=== PATIENT | male | born 1965 | race Caucasian/White ===

== ENCOUNTER 2016-07-18 11:57 | Emergency (ER) | payer OTHER ==
--- NOTE | 2016-07-18 13:12 | DIAGNOSTIC IMAGING REPORT ---
PROCEDURE: XR CHEST 1 VIEW INDICATION: SHORTNESS OF BREATH TECHNIQUE: Portable AP view 12:47 p.m. COMPARISON: None. FINDINGS: Lungs are clear. Pacemaker and mitral valve replacement. Mild cardiomegaly. IMPRESSION: 1. Mild cardiomegaly. Lungs clear.
--- NOTE | 2016-07-18 15:40 | ED CLINICAL REPORT ---
Clinical Report - Physicians/Mid Levels [facility] [address] [place] [address] 07/18/2016 11:59 Patient: MATTHEW AKBAR Time Seen: 12:21. Arrived- By private vehicle. Historian- patient. HISTORY OF PRESENT ILLNESS Chief Complaint: SHORTNESS OF BREATH. This started several months ago and is now gone. It has been intermittent and waxing/waning. It is described as pressure. The patient has had mild difficulty breathing (chronically). (the patient is concerned as he has had redness and skin breakdown over his legs for the past couple of weeks.). REVIEW OF SYSTEMS The patient has had mild calf pain involving the right leg and left leg (chronically). It has been similar to previous episodes. He has had chest pain. He has had difficulty breathing (chronically). It has been similar to previous symptoms. He has had pedal edema involving the right and left leg (chronically - recently worsening). He has had palpitations (chronically). No abdominal pain, constipation, diarrhea, nausea or vomiting. He has had skin rash consisting of "redness" located on the right leg and left leg. All systems otherwise negative, except as recorded above. SOCIAL HISTORY Current every day smoker (cigarette). Alcohol use; consumes beer occasionally. History of occasional drug use: marijuana. FAMILY HISTORY Denies family medical history. ADDITIONAL NOTES The nursing notes have been reviewed. PHYSICAL EXAM Vital Signs: 07/18/2016 12:15 BP: 133/83. HR: 80. RR: 18. O2 saturation: 96%. Temp: 98.2 F. Pain level now: 8/10. Have been reviewed. Appearance: Alert. Eyes: Pupils equal, round and reactive to light. ENT: Pharynx normal. Neck: Normal inspection. Neck supple. No JVD. CVS: Abnormal rhythm, which is irregularly irregular. Respiratory: No respiratory distress. Decreased air movement. No rales, rhonchi or wheezes. Abdomen: Soft and nontender. Bowel sounds normal. No organomegaly. No mass. Back: Normal external inspection. Skin: Medium area of cellulitis with tenderness, erythema and warmth to right leg and left leg. Extremities: Bilateral mild pitting edema of the lower extremities involving both feet, both ankles and both lower legs. Extremities exhibit normal ROM. No calf tenderness. LABS, X-RAYS, AND EKG EKG: Atrial fibrillation. Left posterior fascicular block. Our EKG machine reports suspect unspecified pacemaker failure. Prior EKG unavailable. The study has been independently viewed by me. Chest X-ray: (IMPRESSION: 1. Mild cardiomegaly. Lungs clear.). The X-rays were interpreted by the radiologist and contemporaneously by me. Laboratory Tests: UA-Culture if indicated: (MICHELLE: 07/18/2016 14:50) ( [facility] Final results Test Result Flag Units (Reference) URINE COLOR YELLOW URINE APPEARANCE CLEAR URINE GLUCOSE NEGATIVE (NEGATIVE) URINE BILIRUBIN NEGATIVE (NEGATIVE) URINE KETONE NEGATIVE (NEGATIVE) URINE SPECIFIC GRAVITY 1.010 (1.010-1.030) URINE PH 5.5 (5.0-8.0) URINE PROTEIN NEGATIVE (NEGATIVE) URINE UROBILINOGEN 0.2 EU/dL (0.2-1.0) URINE NITRITE NEGATIVE (NEGATIVE) URINE BLOOD NEGATIVE (NEGATIVE) URINE LEUK ESTERASE NEGATIVE (NEGATIVE) URINE RBC NONE SEEN rbc/hpf (0-1) URINE WBC NONE SEEN wbc/hpf (0-1) URINE EPITHELIAL CELLS 0-1 EPI/hpf (0-5) URINE BACTERIA NONE SEEN (NONE SEEN) URINE COMMENT CULT NOT INDICATED URINE CULTURES ARE SET-UP BASED ON THE FOLLOWING CRITERIA:POSITIVE NITRITEPOSITIVE LEUKOCYTE ESTERASEGREATER THAN 10 WHITE BLOOD CELLSMODERATE (2+) OR GREATER BACTERIA CBC w Diff: (MICHELLE: 07/18/2016 12:50) ( [facility] 07/18/2016 13:04) Final results Test Result Flag Units (Reference) WHITE BLOOD COUNT 10.2 K/uL (4.5-11.5) RED BLOOD COUNT 4.94 M/uL (4.50-5.90) HEMOGLOBIN 15.4 gm/dL (13.5-17.5) HEMATOCRIT 45.8 % (41.0-53.0) MEAN CELL VOLUME 93 fL (80-100) MEAN CORPUSCULAR HGB 31 pg (26-34) MEAN CORPUSCULAR HGB CONC 34 g/dL (31-37) RED CELL DISTRIBUTION WIDTH 13.0 % (11.6-14.8) PLATELET COUNT 213 K/uL (150-400) NEUTROPHIL % 68.9 % (50-75) LYMPH % 20.3 L % (25-40) MONO % 6.4 % (3-14) EOSINOPHIL % 3.9 % (0-4) BASOPHIL % 0.5 % (0-2) PT with INR: (MICHELLE: 07/18/2016 12:50) ( [facility] 07/18/2016 13:12) Final results Test Result Flag Units (Reference) INR 0.9 (0.8-1.2) Low Intensity Therapy: INR 1.5-2.0 PT range 18.5-23.1Mod.Intensity Therapy: INR 2.0-3.0 PT range 23.1-31.5High Intensity Therapy: INR 2.5-3.5 PT range 27.4-35.5High Intensity Therapy 2: INR 3.0-4.0 PT range 31.5-39.3 APTT 33 SECONDS (24-34) D-DIMER QUANTITATIVE 0.49 ug/mLFEU (0.27-0.52) The primary value of this quantitative assay relates toits negative predictive value (i.e. exclusion) of pulmonaryembolism/deep vein thrombosis/DIC.Elevated levels of d-dimer may also occur with:, age, cancer, inflammation, liver disease,post-op, infection, hematoma, coronary disease, peripheralarteriopathy, bleeding disorders and thrombolytic treatment.Results should be correlated with other clinical andradiological data.Testing Methodology: Latex Immunoassay Urine Drug Screen: (MICHELLE: 07/18/2016 14:50) ( [facility] 07/18/2016 15:19) Final results Test Result Flag Units (Reference) AMPHETAMINE/METHAMPHETAMINE NEGATIVE (NEGATIVE) BARBITURATE NEGATIVE (NEGATIVE) BENZODIAZEPINE NEGATIVE (NEGATIVE) CANNABINOID NEGATIVE (NEGATIVE) COCAINE NEGATIVE (NEGATIVE) ECSTASY NEGATIVE (NEGATIVE) METHADONE NEGATIVE (NEGATIVE) OPIATE NEGATIVE (NEGATIVE) The urine drug screen is a qualitative screening test fordrug overdose and abuse. All screen results should beconsidered as presumptive.Drugs screened for are as follows:BenzodiazepinesCocaineAmphetamines/MetamphetaminesTHC (Tetrahydrocannabinol)OpiatesBarbituratesEcstasyMethadonePositive results are unconfirmed. For confirmation, notifythe lab for the specimen to be sent to the reference lab.All confirmations must be performed by a differentmethodology.The ingestion of natural herbal and plant productscontaining Ephedra/Ephedra metabolites can produce in urineone or more substances capable of cross reacting withamphetamine/methamphetamine immunoassays. These testsprovide a preliminary result only. A more specificalternative chemical method must be used to obtain aconfirmed analytical result. BNP: (MICHELLE: 07/18/2016 12:50) ( [facility] 07/18/2016 13:22) Final results Test Result Flag Units (Reference) B-TYPE NATRIURETIC PEPTIDE 261 H pg/ml (5-100) CMP: (MICHELLE: 07/18/2016 12:50) ( [facility] Final results Test Result Flag Units (Reference) GLUCOSE 126 H mg/dL (70-110) BUN 12 mg/dL (7-18) CREATININE 1.2 mg/dL (0.6-1.3) Estimated GFR >60 mL/min Estimated GFR- >60 mL/min Note: Persistent reduction over 3 months in eGFR<60 mL/min/1.73 m2 defines CKD. Patients with eGFR values>=60 mL/min/1.73 m2 may also have CKD if evidence ofpersistent proteinuria. Additional information may be foundat www.kidney.org. SODIUM 139 mmol/L (136-145) POTASSIUM 4.3 mmol/L (3.5-5.1) CHLORIDE 102 mmol/L (98-107) CARBON DIOXIDE 29 mmol/L (21-32) CALCIUM 9.0 mg/dL (8.5-10.1) TOTAL PROTEIN 6.8 g/dL (6.4-8.2) ALBUMIN 3.4 g/dL (3.3-5.0) BILIRUBIN, TOTAL 0.3 mg/dL (0.0-1.0) ALKALINE PHOSPHATASE 51 U/L (46-116) AST (SGOT) 26 U/L (15-37) ALT (SGPT) 34 U/L (12-78) LIPASE 93 U/L (73-393) AMYLASE 32 U/L (25-115) CPK 162 U/L (24-260) TROPONIN I <0.05 ng/mL (0.00-1.5) TROPONIN REFERENCE RANGE:<0.1 NEGATIVE0.1-1.5 INDETERMINANT>1.5 POSITIVE THYROID STIMULATING HORMONE 1.974 uIU/mL (0.34-3.74) . PROGRESS AND PROCEDURES Course of Care: Patient is stable. Consult obtained from cardiology. Dr. Rico for Dr. Coley. Case discussed. Phone consult only. Will see patient in the office. Patient/family counseled. Old medical records reviewed. Disposition: Discharged. Condition: stable. CLINICAL IMPRESSION Chronic mild congestive heart failure Bilateral pedal edema. Cellulitis of the right lower leg and left lower leg. INSTRUCTIONS Warnings: Further evaluation is necessary. GENERAL WARNINGS: Return or contact your physician immediately if your condition worsens or changes unexpectedly, if not improving as expected, or if other problems arise. Your Current Medications: CONTINUE TAKING THE FOLLOWING MEDICATIONS: Flonase Nasal. Gabapentin Oral. Loratadine Oral. Metoprolol Tartrate Oral : 150 mg two times. Omeprazole Oral. ProAir HFA Inhalation. Zofran Oral. Prescription Medications: Keflex 500 mg: take 1 capsule orally every 6 hours for 10 days. No refill. Substitution is permissible. Lasix 20 mg: take 1 orally every 24 hours. Dispense five (5). No refills. Substitution is permissible. Follow-up: Follow up with your doctor Friday in three days. Call for an appointment. Follow up with a novelty twister operator- as recommended by your primary care physician. Understanding of the discharge instructions verbalized by patient and family. (Electronically signed by Tomas Meeks MD 07/22/2016 9:08)
--- NOTE | 2016-07-18 15:40 | ED ORDER SUMMARY ---
..... Patient: MATTHEW AKBAR OrderSheet [facility] VisitID: [id number] [address] [place] [address] 50y, M Registration Date/Time: 07/18/2016 ORDER SHEET Weight: 113.3 kg (stated) Allergies: No Known Drug Allergy, Penicillins, Sulfa Antibiotics, morphine GENERAL ORDERS: Chest 1V Urgent (12:39 07/18/2016 Maria Esther ENGEL) (Ack 12:42 Jessika) (12:57 EHassan R.N.) Business Unit Director (Continuous) (12:39 07/18/2016 Maria Esther ENGEL) (12:56 EHsuly R.N.) CBC w Diff Urgent (12:39 07/18/2016 Maria Esther ENGEL) (Ack 12:42 Jessika) (12:56 EHassan R.N.) CMP Urgent (12:39 07/18/2016 Maria Esther ENGEL) (Ack 12:42 Jessika) (12:56 EHassan R.N.) PT with INR Urgent (12:39 07/18/2016 Maria Esther ENGEL) (Ack 12:42 Jessika) (12:56 EHassan R.N.) UA-Culture if indicated Urgent (12:39 07/18/2016 Maria Esther ENGEL) (Ack 12:42 Jessika) (15:57 EHassan R.N.) PTT Urgent (12:39 07/18/2016 Maria Esther ENGEL) (Ack 12:42 Jessika) (12:56 EHassan R.N.) CPK Urgent (12:39 07/18/2016 Maria Esther ENGEL) (Ack 12:42 Jessika) (12:56 EHassarosalie R.N.) Troponin-I Urgent (12:39 07/18/2016 Maria Esther ENGEL) (Ack 12:42 Jessika) (12:56 Carlos R.N.) D-Dimer Urgent (12:39 07/18/2016 Maria Esther ENGEL) (Ack 12:42 Jessika) (12:56 EHsuly R.N.) BNP Urgent (12:39 07/18/2016 Maria Esther ENGEL) (Ack 12:42 Jessika) (12:56 EHsuly R.N.) TSH Urgent (12:39 07/18/2016 Maria Esther ENGEL) (Ack 12:42 Jessika) (12:57 EHsuly R.N.) Oxygen (2 L/min) (NC) (12:39 07/18/2016 Maria Esther ENGEL) (12:56 Carlos R.N.) Pulse oximeter (12:39 07/18/2016 Maria Esther ENGEL) (12:56 Carlos R.N.) EKG - ER Stat (12:39 07/18/2016 Maria Esther ENGEL) (13:01 Jessika) Amylase Urgent (12:40 07/18/2016 Maria Esther ENGEL) (Ack 12:42 Jessika) (12:57 Carlos R.N.) Lipase Urgent (12:40 07/18/2016 Maria Esther ENGEL) (Ack 12:42 Jessika) (12:57 EHsuly R.N.) Urine Drug Screen Urgent (14:08 07/18/2016 Maria Esther ENGEL) (Ack 14:14 Jessika) (15:57 Carlos R.N.) MEDICATION ORDERS: Tylenol PO 1,000 mg (NOW) (14:48 07/18/2016 Carlos R.N. verbal order read back to Maria Esther ENGEL) (14:49 EHassan R.N.) IV FLUIDS: IV Saline Lock (12:39 07/18/2016 Maria Esther ENGEL) (12:57 BRENDONassan R.N.) Dilaudid IV 0.5 mg (NOW) (13:02 07/18/2016 Carlos R.N. verbal order read back to Maria Esther ENGEL) (13:16 EHassan R.N.) ORDER SHEET NOTES: [Electronically signed by Elva Gregory R.N. (15:57 07/18/2016)] [Electronically signed by Tomas Meeks MD (09:08 07/22/2016)] [Electronically locked/signed by Elva Gregory R.N. (15:57 07/18/2016)]
--- NOTE | 2016-07-18 15:40 | ED CLINICAL REPORT ---
Clinical Report - Physicians/Mid Levels [facility] [address] [place] [address] 07/18/2016 11:59 Patient: MATTHEW AKBAR Time Seen: 12:21. Arrived- By private vehicle. Historian- patient. HISTORY OF PRESENT ILLNESS Chief Complaint: SHORTNESS OF BREATH. This started several months ago and is now gone. It has been intermittent and waxing/waning. It is described as pressure. The patient has had mild difficulty breathing (chronically). (the patient is concerned as he has had redness and skin breakdown over his legs for the past couple of weeks.). REVIEW OF SYSTEMS The patient has had mild calf pain involving the right leg and left leg (chronically). It has been similar to previous episodes. He has had chest pain. He has had difficulty breathing (chronically). It has been similar to previous symptoms. He has had pedal edema involving the right and left leg (chronically - recently worsening). He has had palpitations (chronically). No abdominal pain, constipation, diarrhea, nausea or vomiting. He has had skin rash consisting of "redness" located on the right leg and left leg. All systems otherwise negative, except as recorded above. SOCIAL HISTORY Current every day smoker (cigarette). Alcohol use; consumes beer occasionally. History of occasional drug use: marijuana. FAMILY HISTORY Denies family medical history. ADDITIONAL NOTES The nursing notes have been reviewed. PHYSICAL EXAM Vital Signs: 07/18/2016 12:15 BP: 133/83. HR: 80. RR: 18. O2 saturation: 96%. Temp: 98.2 F. Pain level now: 8/10. Have been reviewed. Appearance: Alert. Eyes: Pupils equal, round and reactive to light. ENT: Pharynx normal. Neck: Normal inspection. Neck supple. No JVD. CVS: Abnormal rhythm, which is irregularly irregular. Respiratory: No respiratory distress. Decreased air movement. No rales, rhonchi or wheezes. Abdomen: Soft and nontender. Bowel sounds normal. No organomegaly. No mass. Back: Normal external inspection. Skin: Medium area of cellulitis with tenderness, erythema and warmth to right leg and left leg. Extremities: Bilateral mild pitting edema of the lower extremities involving both feet, both ankles and both lower legs. Extremities exhibit normal ROM. No calf tenderness. LABS, X-RAYS, AND EKG EKG: Atrial fibrillation. Left posterior fascicular block. Our EKG machine reports suspect unspecified pacemaker failure. Prior EKG unavailable. The study has been independently viewed by me. Chest X-ray: (IMPRESSION: 1. Mild cardiomegaly. Lungs clear.). The X-rays were interpreted by the radiologist and contemporaneously by me. Laboratory Tests: UA-Culture if indicated: (MICHELLE: 07/18/2016 14:50) ( [facility] Final results Test Result Flag Units (Reference) URINE COLOR YELLOW URINE APPEARANCE CLEAR URINE GLUCOSE NEGATIVE (NEGATIVE) URINE BILIRUBIN NEGATIVE (NEGATIVE) URINE KETONE NEGATIVE (NEGATIVE) URINE SPECIFIC GRAVITY 1.010 (1.010-1.030) URINE PH 5.5 (5.0-8.0) URINE PROTEIN NEGATIVE (NEGATIVE) URINE UROBILINOGEN 0.2 EU/dL (0.2-1.0) URINE NITRITE NEGATIVE (NEGATIVE) URINE BLOOD NEGATIVE (NEGATIVE) URINE LEUK ESTERASE NEGATIVE (NEGATIVE) URINE RBC NONE SEEN rbc/hpf (0-1) URINE WBC NONE SEEN wbc/hpf (0-1) URINE EPITHELIAL CELLS 0-1 EPI/hpf (0-5) URINE BACTERIA NONE SEEN (NONE SEEN) URINE COMMENT CULT NOT INDICATED URINE CULTURES ARE SET-UP BASED ON THE FOLLOWING CRITERIA:POSITIVE NITRITEPOSITIVE LEUKOCYTE ESTERASEGREATER THAN 10 WHITE BLOOD CELLSMODERATE (2+) OR GREATER BACTERIA CBC w Diff: (MICHELLE: 07/18/2016 12:50) ( [facility] 07/18/2016 13:04) Final results Test Result Flag Units (Reference) WHITE BLOOD COUNT 10.2 K/uL (4.5-11.5) RED BLOOD COUNT 4.94 M/uL (4.50-5.90) HEMOGLOBIN 15.4 gm/dL (13.5-17.5) HEMATOCRIT 45.8 % (41.0-53.0) MEAN CELL VOLUME 93 fL (80-100) MEAN CORPUSCULAR HGB 31 pg (26-34) MEAN CORPUSCULAR HGB CONC 34 g/dL (31-37) RED CELL DISTRIBUTION WIDTH 13.0 % (11.6-14.8) PLATELET COUNT 213 K/uL (150-400) NEUTROPHIL % 68.9 % (50-75) LYMPH % 20.3 L % (25-40) MONO % 6.4 % (3-14) EOSINOPHIL % 3.9 % (0-4) BASOPHIL % 0.5 % (0-2) PT with INR: (MICHELLE: 07/18/2016 12:50) ( [facility] 07/18/2016 13:12) Final results Test Result Flag Units (Reference) INR 0.9 (0.8-1.2) Low Intensity Therapy: INR 1.5-2.0 PT range 18.5-23.1Mod.Intensity Therapy: INR 2.0-3.0 PT range 23.1-31.5High Intensity Therapy: INR 2.5-3.5 PT range 27.4-35.5High Intensity Therapy 2: INR 3.0-4.0 PT range 31.5-39.3 APTT 33 SECONDS (24-34) D-DIMER QUANTITATIVE 0.49 ug/mLFEU (0.27-0.52) The primary value of this quantitative assay relates toits negative predictive value (i.e. exclusion) of pulmonaryembolism/deep vein thrombosis/DIC.Elevated levels of d-dimer may also occur with:, age, cancer, inflammation, liver disease,post-op, infection, hematoma, coronary disease, peripheralarteriopathy, bleeding disorders and thrombolytic treatment.Results should be correlated with other clinical andradiological data.Testing Methodology: Latex Immunoassay Urine Drug Screen: (MICHELLE: 07/18/2016 14:50) ( [facility] 07/18/2016 15:19) Final results Test Result Flag Units (Reference) AMPHETAMINE/METHAMPHETAMINE NEGATIVE (NEGATIVE) BARBITURATE NEGATIVE (NEGATIVE) BENZODIAZEPINE NEGATIVE (NEGATIVE) CANNABINOID NEGATIVE (NEGATIVE) COCAINE NEGATIVE (NEGATIVE) ECSTASY NEGATIVE (NEGATIVE) METHADONE NEGATIVE (NEGATIVE) OPIATE NEGATIVE (NEGATIVE) The urine drug screen is a qualitative screening test fordrug overdose and abuse. All screen results should beconsidered as presumptive.Drugs screened for are as follows:BenzodiazepinesCocaineAmphetamines/MetamphetaminesTHC (Tetrahydrocannabinol)OpiatesBarbituratesEcstasyMethadonePositive results are unconfirmed. For confirmation, notifythe lab for the specimen to be sent to the reference lab.All confirmations must be performed by a differentmethodology.The ingestion of natural herbal and plant productscontaining Ephedra/Ephedra metabolites can produce in urineone or more substances capable of cross reacting withamphetamine/methamphetamine immunoassays. These testsprovide a preliminary result only. A more specificalternative chemical method must be used to obtain aconfirmed analytical result. BNP: (MICHELLE: 07/18/2016 12:50) ( [facility] 13:22) Final results Test Result Flag Units (Reference) B-TYPE NATRIURETIC PEPTIDE 261 H pg/ml (5-100) CMP: (MICHELLE: 07/18/2016 12:50) ( [facility] 07/18/2016 14:02) Final results Test Result Flag Units (Reference) GLUCOSE 126 H mg/dL (70-110) BUN 12 mg/dL (7-18) CREATININE 1.2 mg/dL (0.6-1.3) Estimated GFR >60 mL/min Estimated GFR- >60 mL/min Note: Persistent reduction over 3 months in eGFR<60 mL/min/1.73 m2 defines CKD. Patients with eGFR values>=60 mL/min/1.73 m2 may also have CKD if evidence ofpersistent proteinuria. Additional information may be foundat www.kidney.org. SODIUM 139 mmol/L (136-145) POTASSIUM 4.3 mmol/L (3.5-5.1) CHLORIDE 102 mmol/L (98-107) CARBON DIOXIDE 29 mmol/L (21-32) CALCIUM 9.0 mg/dL (8.5-10.1) TOTAL PROTEIN 6.8 g/dL (6.4-8.2) ALBUMIN 3.4 g/dL (3.3-5.0) BILIRUBIN, TOTAL 0.3 mg/dL (0.0-1.0) ALKALINE PHOSPHATASE 51 U/L (46-116) AST (SGOT) 26 U/L (15-37) ALT (SGPT) 34 U/L (12-78) LIPASE 93 U/L (73-393) AMYLASE 32 U/L (25-115) CPK 162 U/L (24-260) TROPONIN I <0.05 ng/mL (0.00-1.5) TROPONIN REFERENCE RANGE:<0.1 NEGATIVE0.1-1.5 INDETERMINANT>1.5 POSITIVE THYROID STIMULATING HORMONE 1.974 uIU/mL (0.34-3.74) . PROGRESS AND PROCEDURES Course of Care: Patient is stable. Consult obtained from cardiology. Dr. Rico for Dr. Coley. Case discussed. Phone consult only. Will see patient in the office. Patient/family counseled. Old medical records reviewed. Disposition: Discharged. Condition: stable. CLINICAL IMPRESSION Chronic mild congestive heart failure Bilateral pedal edema. Cellulitis of the right lower leg and left lower leg. INSTRUCTIONS Warnings: Further evaluation is necessary. GENERAL WARNINGS: Return or contact your physician immediately if your condition worsens or changes unexpectedly, if not improving as expected, or if other problems arise. Your Current Medications: CONTINUE TAKING THE FOLLOWING MEDICATIONS: Flonase Nasal. Gabapentin Oral. Loratadine Oral. Metoprolol Tartrate Oral : 150 mg two times. Omeprazole Oral. ProAir HFA Inhalation. Zofran Oral. Prescription Medications: Keflex 500 mg: take 1 capsule orally every 6 hours for 10 days. No refill. Substitution is permissible. Lasix 20 mg: take 1 orally every 24 hours. Dispense five (5). No refills. Substitution is permissible. Follow-up: Follow up with your doctor Friday in three days. Call for an appointment. Follow up with a optic fibre drawer- as recommended by your primary care physician. Understanding of the discharge instructions verbalized by patient and family. (Electronically signed by Tomas Meeks MD 07/22/2016 9:08)
--- NOTE | 2016-07-18 15:40 | ED ORDER SUMMARY ---
..... Patient: MATTHEW AKBAR OrderSheet [facility] VisitID: [id number] [address] [place] [address] 50y, M Registration Date/Time: 07/18/2016 ORDER SHEET Weight: 113.3 kg (stated) Allergies: No Known Drug Allergy, Penicillins, Sulfa Antibiotics, morphine GENERAL ORDERS: Chest 1V Urgent (12:39 07/18/2016 Maria Esther ENGEL) (Ack 12:42 Jessika) (12:57 EHassan R.N.) Stripper Preliminary (Continuous) (12:39 07/18/2016 Maria Esther ENGEL) (12:56 EHsuly R.N.) CBC w Diff Urgent (12:39 07/18/2016 Maria Esther ENGEL) (Ack 12:42 Jessika) (12:56 EHassan R.N.) CMP Urgent (12:39 07/18/2016 Maria Esther ENGEL) (Ack 12:42 Jessika) (12:56 EHassan R.N.) PT with INR Urgent (12:39 07/18/2016 Maria Esther ENGEL) (Ack 12:42 Jessika) (12:56 EHassan R.N.) UA-Culture if indicated Urgent (12:39 07/18/2016 Maria Esther ENGEL) (Ack 12:42 Jessika) (15:57 EHassan R.N.) PTT Urgent (12:39 07/18/2016 Maria Esther ENGEL) (Ack 12:42 Jessika) (12:56 EHassan R.N.) CPK Urgent (12:39 07/18/2016 Maria Esther ENGEL) (Ack 12:42 Jessika) (12:56 EHassarosalie R.N.) Troponin-I Urgent (12:39 07/18/2016 Maria Esther ENGEL) (Ack 12:42 Jessika) (12:56 Carlos R.N.) D-Dimer Urgent (12:39 07/18/2016 Maria Esther ENGEL) (Ack 12:42 Jessika) (12:56 EHsuly R.N.) BNP Urgent (12:39 07/18/2016 Maria Esther ENGEL) (Ack 12:42 Jessika) (12:56 EHsuly R.N.) TSH Urgent (12:39 07/18/2016 Maria Esther ENGEL) (Ack 12:42 Jessika) (12:57 EHsuly R.N.) Oxygen (2 L/min) (NC) (12:39 07/18/2016 Maria Esther ENGEL) (12:56 Carlos R.N.) Pulse oximeter (12:39 07/18/2016 Maria Esther ENGEL) (12:56 Carlos R.N.) EKG - ER Stat (12:39 07/18/2016 Maria Esther ENGEL) (13:01 Jessika) Amylase Urgent (12:40 07/18/2016 Maria Esther ENGEL) (Ack 12:42 Jessika) (12:57 Carlos R.N.) Lipase Urgent (12:40 07/18/2016 Maria Esther ENGEL) (Ack 12:42 Jessika) (12:57 EHsuly R.N.) Urine Drug Screen Urgent (14:08 07/18/2016 Maria Esther ENGEL) (Ack 14:14 Jessika) (15:57 Carlos R.N.) MEDICATION ORDERS: Tylenol PO 1,000 mg (NOW) (14:48 07/18/2016 Carlos R.N. verbal order read back to Maria Esther ENGEL) (14:49 EHassan R.N.) IV FLUIDS: IV Saline Lock (12:39 07/18/2016 Maria Esther ENGEL) (12:57 BRENDONassan R.N.) Dilaudid IV 0.5 mg (NOW) (13:02 07/18/2016 Carlos R.N. verbal order read back to Maria Esther ENGEL) (13:16 EHassan R.N.) ORDER SHEET NOTES: [Electronically signed by Elva Gregory R.N. (15:57 07/18/2016)] [Electronically signed by Tomas Meeks MD (09:08 07/22/2016)] [Electronically locked/signed by Elva Gregory R.N. (15:57 07/18/2016)]
--- NOTE | 2016-07-18 15:40 | ED NURSING NOTES ---
Clinical Report - Nurses [place] [address] [place] [address] 07/18/2016 11:59 Patient: MATTHEW AKBAR TRIAGE Triage time 1214 PM. Acuity: LEVEL 3. Chief Complaint: (Rash on bilateral legs). Alert. No acute distress. SEPSIS SCREEN: Sepsis Screen. Negative (no infection suspected/documented). NAYELI COMA SCORE: Nayeli Coma Scale: 15- eyes open spontaneously (4); best verbal response- oriented x 4 (5); best motor response- obeys commands (6). --12:35 Elva Gregory R.N. 12:15 07/18/16. BP: 133/83 (regular adult cuff) taken on the left arm, via an automated monitor, while sitting. HR: 80. RR: 18. O2 saturation: 96% on room air. Temp: 98.2 F (oral). Pain level now: 11/21. --12:35 Elva Gregory R.N. late entry - 12:15 PM. --14:41 Elva Gregory R.N. Weight: 113.3 kg stated. Height/Length: 72 inches Per Patient. BMI: 33.9. --12:18 Elva Gregory R.N. Medications Metoprolol Tartrate Oral 150 mg, two times. --12:24 Elva Gregory R.N. Gabapentin Oral. --12:24 Elva Gregory R.N. Loratadine Oral. --12:24 Elva Gregory R.N. Omeprazole Oral. --12:24 Elva Gregory R.N. Zofran Oral. --12:25 Elva Gregory R.N. Flonase Nasal. --12:26 Elva Gregory R.N. ProAir HFA Inhalation. --12:26 Elva Gregory R.N. Medication/allergy information source: the patient. --12:35 Elva Gregory R.N. Allergies No Known Drug Allergy. Penicillins. --12:25 Elva Gregory R.N. Sulfa Antibiotics. --12:25 Elva Gregory R.N. morphine. --12:25 Elva Gregory R.N. History Arrived by private vehicle. Historian: patient. Primary physician (Dr. Richardson- [facility]). ( Pt states has had this rash like on both his legs that initiated approximately a couple of weeks ago. Pt states that this happened when he was having "heart troubles, afib/aflutter and after insertion of PPM it went away" Pt states experiencing pain, swelling on both legs and hands, SOB, tired. Here for evaluation). Onset. (2 weeks). He has had weakness, difficulty breathing and skin rash. No fever or cough. Denies muscle aches. Treatment [employer]: None. PAST MEDICAL HX: Immunizations: status is unknown. SOCIAL HX: Current every day smoker (cigarette). Occasional alcohol use; consumes beer occasionally. History of weekly drug use: marijuana. (1 weeks). No infectious disease exposure. ABUSE ASSESSMENT: No report of abuse. SELF HARM ASSESSMENT: A self harm assessment was performed. The patient answered "no" to the question "Do you have thoughts of harming or killing yourself?" and "Have you recently had thoughts about harming or killing others?". FALL RISK ASSESSMENT: Fall risk assessment completed. No fall risk identified. NUTRITIONAL RISK ASSESSMENT: The nutritional risk assessment revealed no deficiencies. FUNCTIONAL ASSESSMENT: Functional assessment: no impairments noted. LEARNING NEEDS ASSESSMENT: The learning needs assessment revealed no barriers. SKIN INTEGRITY ASSESSMENT: Skin integrity risk assessment completed. No skin integrity risk identified. --12:35 Elva Gregory R.N. PROBLEMS: Degenerative Joint Disease. Reflux. Arthritis. Back Pain. Atrial Fibrillation. Pancreatitis. COPD - Chronic Obstructive Pulmonary Disease. --12:29 Elva Gregory R.N. ADDITIONAL SURGERIES: Pacemaker. --12:29 Elva Gregory R.N. Assessment SKIN: Skin rash. ( B/L legs with rash, redness, minimal edema, right leg with scratches x3, no drainage, scabbing.). --14:41 Elva Gregory R.N. Interventions ID band on patient. --12:35 Elva Gregory R.N. PHYSICAL ASSESSMENT Ambulatory to room. GENERAL / NEURO / PSYCH: Alert. Oriented X 4. Appears in no acute distress. Appears in pain. HEENT: Pupils equal, round and reactive to light. RESPIRATORY: Respirations not labored. Decreased breath sounds. Breath sounds within normal limits. CVS: Cardiac rhythm: atrial fib/flutter. Capillary refill less than 2 seconds. Pulses within normal limits. GI / : Abdomen soft and nontender and normal bowel sounds. SKIN: Skin is warm and dry. Normal skin turgor. Swelling with tenderness and erythema. --12:53 Elva Gregory R.N. NURSING PROGRESS NOTES 12:49 07/18/2016 Site #1 started via IV in the right antecubital space with an 20g angiocath; one attempt. Blood drawn: rainbow set. Labeled in the presence of the patient and sent to the lab. --12:54 Elva Gregory R.N. The initial plan of care for this patient has been created This plan of care was discussed with the patient and family. Oxygen administered by nasal cannula at 2 liters. child monitor, pulse oximeter and NIBP monitor placed on patient. Patient ID band checked for patient name and birthdate: patient confirmed. Blood samples drawn from the right antecubital space IV site by nurse per protocol ; labeled in presence of the patient: rainbow set. Patient gowned. Warming measures: blanket applied. Reassurance given. Two patient identifiers checked. Call light placed in reach. Side rails up x 1. Bed placed in lowest position. --12:54 Elva Gregory R.N. Cardiac rhythm: atrial fib/flutter. --12:56 Elva Gregory R.N. 12:45 07/18/16. BP: 132/88. HR: 84 (irregular). RR: 16. O2 saturation: 98% on nasal cannula at 2 liters/minute. Pain level now: 11/21. --12:56 Elva Gregory R.N. EKG time: (12:58). EKG was performed by a samra and shown to the ED physician. --13:01 Kenia Carolina 13:14 07/18/2016 Dilaudid (HYDROmorphone HCl PF) IVP 0.5 mg given over 1 minute(s) via site #1. Allergies verified, confirmed 5 rights and sedative warning given to the patient and patient's family. IV patency established. IV site checked: no pain, redness, or swelling. IV flushed thoroughly pre- and post-medication administration. IVP given by RN. --13:16 Elva Gregory R.N. 13:00 07/18/16. BP: 134/86 (regular adult cuff) taken on the left arm, via an automated monitor, while lying. HR: 87. RR: 12. O2 saturation: 99% on nasal cannula at 2 liters/minute. Pain level now: 08/21. --13:21 Elva Gregory R.N. Cardiac rhythm: atrial fib/flutter; 100% atrial pacing. --13:21 Elva Gregory R.N. Reassessment after oxygen administered. ( Pt complaint of pain H/A and b/l leg pain, dilaudid given with positive results. Comfort provided, emotional support given). GENERAL / NEURO / PSYCH: The patient reports headache. RESPIRATORY: Denies difficulty breathing. No respiratory distress present. CVS: Denies chest pain. GI / : Denies nausea. SKIN: Skin is warm. Skin color within normal limits. --13:26 Elva Gregory R.N. 14:19 07/18/2016 Dilaudid IVP Response: no adverse reaction symptoms are the same. The patient feels the same. --14:34 Elva Gregory R.N. 14:00 07/18/16. BP: 128/88. HR: 80. RR: 15. O2 saturation: 100% on nasal cannula at 2 liters/minute. Pain level now: 11/21. --14:39 Elva Gregory R.N. late entry - 14:00 PM. Cardiac rhythm: atrial fib/flutter. Reassurance given. --14:39 Elva Gregory R.N. 14:49 07/18/2016 Tylenol (Acetaminophen) PO Tablets 1000 mg given. Allergies verified and confirmed 5 rights. --14:49 Elva Gregory R.N. 15:32 07/18/2016 Tylenol PO Response: no adverse reaction pain is improving. --15:57 Elva Gregory R.N. DISPOSITION / DISCHARGE 15:46 07/18/2016 Site #1 removed upon discharge. Catheter intact. Manual pressure, bandaid and bandage applied. --15:56 Elva Gregory R.N. Cardiac rhythm: atrial fib/flutter. Departure time: 1555 PM. Condition at departure: improved and stable. The goals identified in the patient's plan of care were met. No learning barriers present. Discharge instructions provided and reviewed with the patient. Reviewed medication(s) side effects, precautions, dosing and course information. Prescription(s) given to the patient. Patient verbalized understanding. Written instructions provided in Icelandic. The patient was discharged by the physician. He was discharged home and accompanied by spouse. He left the Emergency Department ambulatory and via private vehicle. Spouse driving. FALL RISK ASSESSMENT: Fall risk assessment completed. No fall risk identified. NAYELI COMA SCORE: [place] Coma Scale: 10- eyes open spontaneously (4); best motor response- obeys commands (6). --15:57 Elva Gregory R.N. 15:50 07/18/16. BP: 123/80 (regular adult cuff) taken on the left arm, via an automated monitor, while sitting. HR: 87. RR: 15. O2 saturation: 100% on room air. Temp: 97.9 F (oral). Pain level now: 08/21. --15:57 Elva Gregory R.N. Locked/Released at 07/18/2016 15:57 by Elva Gregory R.N.
--- NOTE | 2016-07-22 09:08 | ED MAR SUMMARY ---
..... Medication Administration Record [facility] [address] [place] [place] [address] Patient: MATTHEW AKBAR Visit ID: [id number] 50y, M Weight: 113.3 kg Height/Length: 72 in BMI: 33.9 ALLERGIES: morphine, Sulfa Antibiotics, No Known Drug Allergy, Penicillins Given 13:14 07/18/2016 Elva Gregory R.N. Medication Administered: DILAUDID [IVP] (HYDROMORPHONE HCL PF), Dose: 0.5 mg IVP over 1 minute(s), Site: #1 right AC. Medication Ordered: Dilaudid IV 0.5 mg (NOW). Given 14:49 07/18/2016 Elva Gregory R.N. Medication Administered: TYLENOL [PO] (ACETAMINOPHEN), Dose: 1000 mg Tablets PO. Medication Ordered: Tylenol PO 1,000 mg (NOW).
--- NOTE | 2016-07-22 09:08 | ED MED RECONCILIATION SUMMARY ---
Patient: MATTHEW AKBAR Medication Reconciliation Report [facility] VisitID: [id number] [address] [place] [address] 50y, M Registration Date/Time: 07/18/2016 Weight: 113.3 kg Height/Length: 72 in. BMI: 33.9 ALLERGIES: morphine, No Known Drug Allergy, Penicillins, Sulfa Antibiotics The patient's Home Medications are listed below: CONTINUE TAKING THE FOLLOWING MEDICATIONS: Flonase Nasal Gabapentin Oral Loratadine Oral Metoprolol Tartrate Oral 150 mg, two times Omeprazole Oral ProAir HFA Inhalation Zofran Oral The source(s) of the original Home Medication information: patient The following Medications were given to the patient in the Emergency Department: Dilaudid [IVP] IVP 0.5 mg, administered: 07/18/2016 1:14:00 PM Tylenol [PO] PO 1000 mg, administered: 07/18/2016 2:49:00 PM The following Medications were prescribed to the patient: Keflex 500 mg: take 1 capsule orally every 6 hours for 10 days. No refill. Substitution is permissible. -- Tomas Meeks MD Lasix 20 mg: take 1 orally every 24 hours. Dispense five (5). No refills. Substitution is permissible. -- Tomas Meeks MD
--- NOTE | 2016-07-22 09:08 | ED MAR SUMMARY ---
..... Medication Administration Record [facility] [address] [place] [address] Patient: MATTHEW AKBAR Visit ID: [id number] 50y, M Weight: 113.3 kg Height/Length: 72 in BMI: 33.9 ALLERGIES: morphine, Sulfa Antibiotics, No Known Drug Allergy, Penicillins Given 13:14 07/18/2016 Elva Gregory R.N. Medication Administered: DILAUDID [IVP] (HYDROMORPHONE HCL PF), Dose: 0.5 mg IVP over 1 minute(s), Site: #1 right AC. Medication Ordered: Dilaudid IV 0.5 mg (NOW). Given 14:49 07/18/2016 Elva Gregory R.N. Medication Administered: TYLENOL [PO] (ACETAMINOPHEN), Dose: 1000 mg Tablets PO. Medication Ordered: Tylenol PO 1,000 mg (NOW).
--- NOTE | 2016-07-22 09:08 | ED MED RECONCILIATION SUMMARY ---
Patient: MATTHEW AKBAR Medication Reconciliation Report [facility] VisitID: [id number] [address] [place] [address] 50y, M Registration Date/Time: 07/18/2016 Weight: 113.3 kg Height/Length: 72 in. BMI: 33.9 ALLERGIES: morphine, No Known Drug Allergy, Penicillins, Sulfa Antibiotics The patient's Home Medications are listed below: CONTINUE TAKING THE FOLLOWING MEDICATIONS: Flonase Nasal Gabapentin Oral Loratadine Oral Metoprolol Tartrate Oral 150 mg, two times Omeprazole Oral ProAir HFA Inhalation Zofran Oral The source(s) of the original Home Medication information: patient The following Medications were given to the patient in the Emergency Department: Dilaudid [IVP] IVP 0.5 mg, administered: 07/18/2016 1:14:00 PM Tylenol [PO] PO 1000 mg, administered: 07/18/2016 2:49:00 PM The following Medications were prescribed to the patient: Keflex 500 mg: take 1 capsule orally every 6 hours for 10 days. No refill. Substitution is permissible. -- Tomas Meeks MD Lasix 20 mg: take 1 orally every 24 hours. Dispense five (5). No refills. Substitution is permissible. -- Tomas Meeks MD
--- NOTE | 2016-07-22 09:08 | ED DISCHARGE INSTRUCTIONS ---
Patient: MATTHEW AKBAR General Instructions [facility] VisitID: [id number] [place] [address] 50y, M Registration Date/Time: 07/18/2016 Chronic mild congestive heart failure Bilateral pedal edema. Cellulitis of the right lower leg and left lower leg. INSTRUCTIONS Warnings: Further evaluation is necessary. GENERAL WARNINGS: Return or contact your physician immediately if your condition worsens or changes unexpectedly, if not improving as expected, or if other problems arise. Your Current Medications: CONTINUE TAKING THE FOLLOWING MEDICATIONS: Flonase Nasal. Gabapentin Oral. Loratadine Oral. Metoprolol Tartrate Oral : 150 mg two times. Omeprazole Oral. ProAir HFA Inhalation. Zofran Oral. Prescription Medications: Keflex 500 mg: take 1 capsule orally every 6 hours for 10 days. No refill. Substitution is permissible. Lasix 20 mg: take 1 orally every 24 hours. Dispense five (5). No refills. Substitution is permissible. Follow-up: Follow up with your doctor Friday in three days. Call for an appointment. Follow up with a telecom assistant- as recommended by your primary care physician. Understanding of the discharge instructions verbalized by patient and family. ADDITIONAL INFORMATION Heart Failure (Left Or Right Sided) The heart is a large muscle that pumps blood throughout the body. Blood carries oxygen to all the organs, muscles, and skin of your body. After the body takes the oxygen out of the blood, the blood returns to the heart. The right side of the heart collects that blood and pumps it to the lungs to receive fresh oxygen. This oxygen-rich blood from the lungs then returns to the left side of the heart where it is pumped back out to the rest of the body, starting the process all over. Heart Failure (HF) occurs when the heart muscle is weakened. This affects the pumping action of the heart. When the right side of the heart is weakened, it cant handle the blood it is receiving from the rest of the body. This blood returns to the heart through veins. When too much pressure builds up in the veins fluid leaks out into the tissues. [place] then causes that fluid to spread to those parts of the body that are the lowest. Therefore, one of the first symptoms of HF include swelling in the feet and ankles. If the condition worsens, the swelling can even go up past the knees. When the left side of the heart is weakened, it cant handle the blood it is receiving from the lungs. Pressure then builds up in the veins of the lungs, causing fluid to leakinto the lung tissues. This may be referred to as congestive heart failure.This causes you to feel short of breath, weak, or dizzy. These symptoms are often worse with exertion, such as climbing stairs or walking up hills. Lying flat is uncomfortable and can make your breathing worse. This may make sleeping difficult and force you to useextra pillows to sleep well. This condition may not only affect the right side of the heart or only the left side. While it may have started on one side, it often affects both sides. Causes of heart failure Coronary artery disease Prior heart attack (also known as acute myocardial infarction, or AMI) High blood pressure Damaged heart valve Diabetes Obesity Cigarette smoking Alcohol abuse Treatment Heart failure is a chronic condition. There is no cure. The purpose of medical treatment is to improve the pumping action of the heart, and remove excess water from the body. A number of medications can help achieve this goal,improvesymptoms and prevent the heart from becoming weaker. Another major goal is to better treat the caues of heart failure, such as diabetes, high blood pressure, and your lifestyle. Home care Check your weight every day. A sudden increase in weight gain could mean worsening heart failure. Use the same scale every day Weigh yourself at the same time every day Make sure the scale is on the floor, not on a rug Keep a record of your weight every day, so your doctor can see it. If you are not given a log sheet for this, keep a separate journal for this purpose. Reduce your salt (sodium) intake. Avoid high-salt foods (olives, pickles, smoked meats, salted potato chips, etc.). Do not add salt to your food at the table and use only small amounts of salt when cooking. Follow your doctors recommendations about how much fluid intake is safe. Stop smoking. Reduce alcohol use. Lose weight if you are overweight. The excess weight adds a lot of stress on the workload of the heart. Stay active. Talk to your doctor about an exercise program that is safe for your heart. Keep your feet elevated to reduce swelling. Ask your doctor about support hose as a preventive treatment for daytime leg swelling. Besides taking your medicine as instructed, an important part of treatment includes lifestyle changes such as diet, physical activity, stopping smoking, and weight control. Improve your diet. Often in the hospital, people are given a "heart healthy diet." This includes more fresh foods, lower fat, less processed foots, and lower salt. Follow-up care Follow up with your doctor as directed by our staff. Make sure to keep any appointments that were made for you as this can help better control heart failure. If an X-ray was done, you will be notified of any new findings that may affect your care. Call 911 Call 911 if you: Become severely short of breath Feel lightheaded, or feel like you might pass out or faint Have chest pain or discomfort that is different than usual, the medicines your doctor told you to use for this do not help, or the pain lasts longer than 10 to 15 minutes Suddendly develop a rapid heart rate When to seek medical care Get prompt medical attention if you have any of the following signs of worsening heart failure: Sudden weight gain (3or more pounds in one day or5or more pounds in one week) Trouble breathing not related to being active New or increased swelling of your legs or ankles Swelling or pain in your abdomen Breathing trouble at night (waking up short of breath, needing more pillows to breathe) Frequent coughing that doesnt go away Feeling much more tired than usual Cellulitis You have an infection of the skin known as cellulitis. This usually starts with a scrape, cut, insect bite, blister or other opening in the skin which becomes infected. This is a serious condition. It must be watched closely to be sure the infection is not spreading. With antibiotic treatment, the size of the red area will gradually shrink in size until the skin returns to normal. This will take 7-10 days. The red area should never increase in size once the antibiotic medicine has been started. Occasionally, an infection will be resistant to one antibiotic and another one will have to be used. Home Care: 1) Limit the use of the affected part, since excess movement can cause the infection to spread. 2) If the infection is on your leg, walk as little as possible during the first few days of the treatment. Keep your leg elevated while sitting. This will reduce swelling. 3) Take all of the antibiotic medicine exactly as directed until it is gone. Be careful not to miss any doses, especially during the first seven days. Follow Up with your doctor or this facility as directed. Check the infected area daily for the warning signs listed below. Get Prompt Medical Attention if any of the following occur: -- Spreading area of redness -- Increasing swelling or pain -- Appearance of pus or drainage -- Fever over 100.4 F (38.0 C) oral, or over 101.4 F (38.6 C) rectal, after two days on antibiotics Leg Swelling [Bilateral] Swelling of the feet, ankles and legs is called "Edema." It is due to excess fluid collecting in the tissues. Because of gravity, excess fluid in the body settles in the lowest part. This is why the legs and feet are most affected. Some of the causes for edema include: Disease of the heart (congestive heart failure or "CHF") Prolonged standing or sitting (with the legs in the down position) Infection of the feet or legs Venous Insufficiency (congestion of blood in the veins of the legs) Varicose veins (dilated veins of the lower leg) Garters, or clothing that constricts your legs. (These will cause venous congestion by restricting blood flow.) Some medicines (hormones such as control pills; some blood pressure medicines, such as calcium channel blockers; steroids; some antidepressants such as MAO inhibitors and tricyclics.) Menstrual periods with fluid retention Renal insufficiency (a form of kidney disease) Liver failure (Some swelling is normal, but a sudden increase in leg swelling or weight gain can be a sign of a dangerous complication of ). Medical treatment will depend on the cause of your swelling. Diuretics (water pills) may be prescribed to remove excess fluid. Home Care: Do not wear garments that constrict your legs (such as garters). Elevate your legs while lying or sitting. If infection, injury or recent surgery is the cause for your swelling, stay off your legs as much as possible until symptoms improve. If your doctor says that your leg swelling is caused by venous insufficiency or varicose veins, do not sit or professional system administrator one place for long periods of time. Take breaks and walk about every few hours. Brisk walking is a good exercise and helps circulate the congested blood from your leg. Talk to your doctor about the use of support stockings to prevent daytime leg swelling. If your doctor says that heart disease is the cause of your leg swelling, follow a low-salt diet to prevent excess fluid retention. Follow Up with your doctor or as advised by our staff. Get Prompt Medical Attention if any of the following occur: New or worsening shortness of breath or chest pain Increasing swelling in both legs or ankles Swelling of the abdomen Redness, warmth or swelling in one leg Fever of 100.4F (38C) or higher, or as directed by your healthcare provider Yellow color to the skin or eyes Rapid, unexplained weight gain Cephalexin Monohydrate Oral tablet What is this medicine? CEPHALEXIN (sef a KILO in) is a cephalosporin antibiotic. It is used to treat certain kinds of bacterial infections It will not work for colds, flu, or other viral infections. How should I use this medicine? Take this medicine by mouth with a full glass of water. Follow the directions on the prescription label. This medicine can be taken with or without food. Take your medicine at regular intervals. Do not take your medicine more often than directed. Take all of your medicine as directed even if you think you are better. Do not skip doses or stop your medicine early. Talk to your assistant community director regarding the use of this medicine in children. While this drug may be prescribed for selected conditions, precautions do apply. What side effects may I notice from receiving this medicine? Side effects that you should report to your doctor or health floor care technician as soon as possible: allergic reactions like skin rash, itching or hives, swelling of the face, lips, or tongue breathing problems pain or trouble passing urine redness, blistering, peeling or loosening of the skin, including inside the mouth severe or watery diarrhea unusually weak or tired yellowing of the eyes, skin Side effects that usually do not require medical attention (report to your doctor or health floor care technician if they continue or are bothersome): gas or heartburn genital or anal irritation headache joint or muscle pain nausea, vomiting What may interact with this medicine? probenecid some other antibiotics What if I miss a dose? If you miss a dose, take it as soon as you can. If it is almost time for your next dose, take only that dose. Do not take double or extra doses. There should be at least 4 to 6 hours between doses. Where should I keep my medicine? Keep out of the reach of children. Store at room temperature between 59 and 86 degrees F (15 and 30 degrees C). Throw away any unused medicine after the expiration date. What should I tell my health care provider before I take this medicine? They need to know if you have any of these conditions: kidney disease stomach or intestine problems, especially colitis an unusual or allergic reaction to cephalexin, other cephalosporins, penicillins, other antibiotics, medicines, foods, dyes or preservatives or trying to get breast-feeding What should I watch for while using this medicine? Tell your doctor or health floor care technician if your symptoms do not begin to improve in a few days. Do not treat diarrhea with over the counter products. Contact your doctor if you have diarrhea that lasts more than 2 days or if it is severe and watery. If you have diabetes, you may get a false-positive result for sugar in your urine. Check with your doctor or health floor care technician. Furosemide Oral tablet What is this medicine? FUROSEMIDE (fyoor [place] se mide) is a diuretic. It helps you make more urine and to lose salt and excess water from your body. This medicine is used to treat high blood pressure, and edema or swelling from heart, kidney, or liver disease. How should I use this medicine? Take this medicine by mouth with a glass of water. Follow the directions on the prescription label. You may take this medicine with or without food. If it upsets your stomach, take it with food or milk. Do not take your medicine more often than directed. Remember that you will need to pass more urine after taking this medicine. Do not take your medicine at a time of day that will cause you problems. Do not take at bedtime. Talk to your assistant community director regarding the use of this medicine in children. While this drug may be prescribed for selected conditions, precautions do apply. What side effects may I notice from receiving this medicine? Side effects that you should report to your doctor or health floor care technician as soon as possible: blood in urine or stools dry mouth fever or chills hearing loss or ringing in the ears irregular heartbeat muscle pain or weakness, cramps skin rash stomach upset, pain, or nausea tingling or numbness in the hands or feet unusually weak or tired vomiting or diarrhea yellowing of the eyes or skin Side effects that usually do not require medical attention (report to your doctor or health floor care technician if they continue or are bothersome): headache loss of appetite unusual bleeding or bruising What may interact with this medicine? aspirin and aspirin-like medicines certain antibiotics chloral hydrate cisplatin cyclosporine digoxin diuretics laxatives lithium medicines for blood pressure medicines that relax muscles for surgery methotrexate NSAIDs, medicines for pain and inflammation like ibuprofen, naproxen, or indomethacin phenytoin steroid medicines like prednisone or cortisone sucralfate What if I miss a dose? If you miss a dose, take it as soon as you can. If it is almost time for your next dose, take only that dose. Do not take double or extra doses. Where should I keep my medicine? Keep out of the reach of children. Store at room temperature between 15 and 30 degrees C (59 and 86 degrees F). Protect from light. Throw away any unused medicine after the expiration date. What should I tell my health care provider before I take this medicine? They need to know if you have any of these conditions: abnormal blood electrolytes diarrhea or vomiting gout heart disease kidney disease, small amounts of urine, or difficulty passing urine liver disease an unusual or allergic reaction to furosemide, sulfa drugs, other medicines, foods, dyes, or preservatives or trying to get breast-feeding What should I watch for while using this medicine? Visit your doctor or health floor care technician for regular checks on your progress. Check your blood pressure regularly. Ask your doctor or health floor care technician what your blood pressure should be, and when you should contact him or her. If you are a diabetic, check your blood sugar as directed. You may need to be on a special diet while taking this medicine. Check with your doctor. Also, ask how many glasses of fluid you need to drink a day. You must not get dehydrated. You may get drowsy or dizzy. Do not drive, use machinery, or do anything that needs mental alertness until you know how this drug affects you. Do not stand or sit up quickly, especially if you are an older patient. This reduces the risk of dizzy or fainting spells. Alcohol can make you more drowsy and dizzy. Avoid alcoholic drinks. This medicine can make you more sensitive to the sun. Keep out of the sun. If you cannot avoid being in the sun, wear protective clothing and use sunscreen. Do not use sun lamps or tanning beds/booths. You have been given the following additional information: Heart Failure, General Cellulitis Peripheral Edema, Bilateral Cephalexin Monohydrate Oral tablet Furosemide Oral tablet (Electronically signed by Tomas Meeks MD 07/22/2016 9:08)
== END 2016-07-18 15:55 | disposition home or self-care (01) ==
LOC: ED SRH 11:57
DX: I50.9 Heart failure, unspecified (principal); L03.115 Cellulitis of right lower limb; L03.116 Cellulitis of left lower limb; R60.0 Localized edema; I48.91 Unspecified atrial fibrillation; J44.9 Chronic obstructive pulmonary disease, unspecified; K21.9 Gastro-esophageal reflux disease without esophagitis; M19.90 Unspecified osteoarthritis, unspecified site; Z79.899 Other long term (current) drug therapy; F17.210 Nicotine dependence, cigarettes, uncomplicated
CPT/HCPCS: 90004; 90100; 90616; 91320; 91556; 92235; 92530; 92610; 92760; 92761; 92762; 92763; 92764; 92765; 92766; 92767; 93140; 94001; 94060; 95059